=== PATIENT | male | born 1950 | race Two or more races ===

== ENCOUNTER 2019-06-29 21:15 | Emergency (ER) | payer OTHER ==
[~2019-06-29] VITALS: Ht 175.3 cm; Wt 115.7 kg
[~2019-06-29 21:15] MED LIST: INTEGRA CAPSUL1 EACH; NORVASC5 MG; PERCOCET 5/3251 TAB PO; PERCOGESIC 3251 EACH; PROTONIX40 MG PO
== END 2019-06-30 00:40 | disposition home or self-care (01) ==
LOC: ER 21:15
DX: R42 Dizziness and giddiness (principal)

== ENCOUNTER 2019-09-16 09:49 | Inpatient (IN) | payer OTHER ==
[~2019-09-16] VITALS: Ht 152.4 cm; Wt 97.5 kg
[2019-09-16] MEDS ORDERED: ATORVASTATIN CA20 MG PO (10:07)
[2019-09-16] MEDS ORDERED: LOSARTAN POTASS25 MG PO (10:07)
[2019-09-16] MEDS ORDERED: METFORMIN HCL500 M3 PO (10:07)
--- NOTE | 2019-09-16 10:08 | NUR ---
PT REFIERE CON RESULTADO DE LABORATORIO HGB 6.1 D/DL CON FECHA DEL DUONG DE HOY. REFIERE FATIGA.
--- NOTE | 2019-09-16 12:11 | NUR ---
SE RECIBE PACIENTE ALERTA Y ORIENTADO EN [place] ESFERAS, SE MARTHA MUESTRAS DE LEIGHA LISA ORDEN MEDICA EN MANO DERECHA. SE ORIENTA SOBRE TRANSFUSION DE LEIGHA EL MISMO VERBALIZA ENTENDER. SE REALIZA EKG. SE ORIENTA SOBRE PROCEDIMIENTOS VERBALIZA ENTENDER.
== END 2019-09-20 15:43 | disposition left against medical advice (07) | DRG 379 ==
LOC: ER 09:49 → MEDJ 19:33
PROVIDERS: ADMIT Internal Medicine
PROC: 30233N1 Transfusion of Nonautologous Red Blood Cells into Peripheral Vein, Percutaneous Approach (ICD-10-PCS; principal; 2019-09-16)
DX: K25.0 Acute gastric ulcer with hemorrhage (principal); D50.0 Iron deficiency anemia secondary to blood loss (chronic); I10 Essential (primary) hypertension; E11.65 Type 2 diabetes mellitus with hyperglycemia; Z79.4 Long term (current) use of insulin